=== PATIENT | male | born 1940 | race Caucasian/White ===

== ENCOUNTER → 2018-05-27 | Outpatient (CLI) | payer MEDICARE, OTHER ==
[~2018-05-27] MED LIST: ACET-1966 PO; ACET-2146 PO; ASPI-1471 PO; ATOR40TA24 PO; DOCU-416 PO; GUAI-244 PO; IBUP-56 PO; LEVO-3 PO; LEVO75TA73 PO; MAGN1TAB2 PO; MAGN400T36 PO; MELA3TAB31 PO; METO25TA23 PO; MOM PO; MULT-839 PO; NPH,100V12 SQ; RIVA20TA PO; TAMS0.4C70 PO
--- NOTE | 2018-05-27 10:51 | EKG ---
FACILITY: [facility] PATIENT NAME: LALIT GARCIA : [id number] MR: [id number] V: [id number] EXAM DATE: ORDERING PHYSICIAN: DERRICK RUTH TECHNOLOGIST: CROW Test Reason : BLOOD PRESSURE Blood Pressure : / mmHG Vent. Rate : 064 BPM Atrial Rate : 064 BPM P-R Int : 224 ms QRS Dur : 070 ms QT Int : 402 ms P-R-T Axes : 037 -25 017 degrees QTc Int : 414 ms Sinus rhythm with 1st degree AV block Inferior infarct , age undetermined Abnormal ECG No previous ECGs available Confirmed by DERRICK RUTH ([id number]) on 05/28/2018 4:52:48 PM Referred By: Confirmed By:DERRICK RUTH
[2018-05-27 10:58] LABS: PLATELET COUNT, AUTOMATED 183 K/uL (150-450)
[2018-05-27 11:15] LABS: LDL CHOLESTEROL 46 mg/dl
== END ==
LOC: CARD 10:05 → MERGE 10:05
PROVIDERS: ATTEND Internal Medicine
DX: I21.9 Acute myocardial infarction, unspecified (principal); I44.0 Atrioventricular block, first degree; R94.31 Abnormal electrocardiogram [ECG] [EKG]; N40.0 Benign prostatic hyperplasia without lower urinary tract symptoms; E11.9 Type 2 diabetes mellitus without complications; R60.9 Edema, unspecified; Z86.73 Personal history of transient ischemic attack (TIA), and cerebral infarction without residual deficits; E03.9 Hypothyroidism, unspecified
CPT/HCPCS: 36415; 82040; 82247; 82310; 82374; 82435; 82465; 82565; 82947; 83036; 83718; 83735; 83880; 84075; 84132; 84153; 84155; 84295; 84443; 84450; 84460; 84478; 84520; 84550; 85025

== ENCOUNTER 2018-06-04 10:53 | Emergency (ER) | payer MEDICARE, OTHER ==
[2018-06-04 10:58] VITALS: BP 149/77
--- NOTE | 2018-06-04 11:04 | ER Report ---
History and Physical Time Seen By MD: 11:03 Hx. of Stated Complaint: WAS EXERCISING AT [facility] WHEN rubber exercise band broke, hitting R eye. Scleral hemorrhage, decreased vision, decreased pupil reactivity. EOMI. HPI/ROS CHIEF COMPLAINT: Right eye pain HISTORY OF PRESENT ILLNESS: 77-year-old male patient presents to the emergency room with complaint of right eye pain. Patient states that he was doing exercises at [employer]. He states he was using a rubber band which broke following up and hitting him in the right eye. They did notice that he had a subconjunctival hemorrhage and were unable to visualize pupil reactivity. They became concerned and called the ER and were directed to have the patient, be evaluated here. Patient states he is not able see as well as in the right eye. He rates his pain a 6 out of 10. He denies any dizziness, nausea, vomiting. Allergies: Coded Allergies: No Known Drug Allergies (Unverified , 05/30/18) Home Meds Active Scripts Levothyroxine Sodium (LEVOTHYROXINE SODIUM) 100 Mcg Tablet, 100 MCG PO QDAY, #90 TAB 3 Refills Prov:DERRICK RUTH MD 06/03/18 Reported Medications Aspirin (ASPIRIN) 325 Mg Tablet, 325 MG PO DAILY, TAB 06/04/18 Rivaroxaban 20 Mg (XARELTO 20 MG) 20 Mg Tablet, 20 MG PO, TAB 05/27/18 Multivitamin (TAB-A-SHAMA) 1 Each Tablet, 1 EACH PO 05/27/18 Metoprolol Succinate (METOPROLOL SUCCINATE) 25 Mg Tab.er.24h, 1 TAB PO QDAY, TAB 05/27/18 Magnesium Oxide (MAGNESIUM OXIDE) 400 Mg Tablet, 400 MG PO QDAY 05/27/18 Nph, Human Insulin Isophane (NOVOLIN N) 100 Unit/1 Ml Vial, 100 UNIT SQ, VIAL 30units subq once daily @ 9am, inject 10u subq qHS 05/27/18 Docusate Sodium (COLACE) 100 Mg Capsule, 100 MG PO BID, CAPSULE 05/27/18 Atorvastatin Calcium (LIPITOR) 40 Mg Tablet, 2 TAB PO QDAY, TAB 05/27/18 Aspirin (ASPIR 81) 81 Mg Tablet.dr, 1 TAB PO QDAY, TAB 05/27/18 Melatonin (MELATONIN) 3 Mg Tablet, 6 MG PO HS PRN for SLEEP 10/2/18 Acetaminophen 500 Mg Tab (ACETAMINOPHEN EXTRA STRENGTH) 500 Mg Tablet, 500 MG PO Q4H PRN for PAIN, TAB 05/27/18 Magnesium Carbonate/Al Hydrox (ANTACID EXTRA STRENGTH CHW TAB) 1 Each Tab.chew, 1500 MG PO Q2H PRN for DIARRHEA, TAB.CHEW 05/27/18 Magnesium Hydroxide (MILK OF MAGNESIA) 400 Mg/5 Ml Oral.susp, 15-30 ML PO PRN for CONSTIPATION, BOTTLE 05/27/18 Guaifenesin (ROBAFEN) 100 Mg/5 Ml Liquid, 5 ML PO Q4-6H PRN for COUGH 05/27/18 Tamsulosin Hcl (TAMSULOSIN HCL) 0.4 Mg Cap.er.24h, 0.4 MG PO HS, CAP 05/27/18 Discontinued Reported Medications Levothyroxine Sodium (LEVOTHYROXINE SODIUM) 75 Mcg Tablet, 75 MCG PO QDAY, TAB 05/27/18 Ibuprofen (IBUPROFEN) 200 Mg Tablet, 1-2 TAB PO Q4-6H PRN for PAIN, TAB 05/27/18 Acetaminophen (TYLENOL) 325 Mg Tablet, 1-2 TAB PO Q4H PRN for PAIN, TAB 05/27/18 Discontinued Scripts Levothyroxine Sodium (LEVOTHYROXINE SODIUM) 100 Mcg Tablet, 100 MCG PO QDAY, #30 TAB 0 Refills Prov:DERRICK RUTH MD 05/29/18 Past Medical/Surgical History Patient has a past medical history of hypertension, hyperlipidemia, hypothyroidism, BPH. Patient has no pertinent surgical history. Reviewed Nurses Notes: Yes Smoking Status: Never Smoker Constitutional Vital Sign - Last 24 Hours 06/04/18 10:58 Temp 98.3 Pulse 63 Resp 20 B/P (MAP) 149/77 Pulse Ox 92 O2 Delivery Room Air Physical Exam General Appearance: The patient is alert, has no immediate need for airway p rotection and no current signs of toxicity. Eyes: Pupils equal and round. Pupils are reactive to light bilaterally. Extraocular movements are intact. Patient does have bleeding at the iris as well as subconjunctival hemorrhage. Respiratory: Chest is non tender, lungs are clear to auscultation. Cardiac: regular rate and rhythm Gastrointestinal: Abdomen is soft and non tender, no masses, bowel sounds normal. Musculoskeletal: Neck: Neck is supple and non tender. Extremities have full range of motion and are non tender. Skin: No rashes or lesions. Patient has some redness around the eye. DIFFERENTIAL DIAGNOSIS: After history and physical exam differential diagnosis was considered for hyphema, increased intraocular pressure, subconjunctival hemorrhage. Medical Decision Making ED Course/Re-evaluation ED Course Patient was admitted to an exam room, history and physical were obtained. The differential diagnoses were considered. On examination a shock to her movements are intact, pupils were equal round and reactive to light. He did have bleeding in the anterior chamber as evidenced by bladder around the iris, as well as a subconjunctival hemorrhage. Patient does admit that he is unable to see as well out of that right eye. A fluorescein exam was done which shows an abrasion over the pupil of the right eye. There is no Evaristo sign. The intraocular pressure was measured using our [place]. The pressure in the right eye was 40 the pressure in the left eye was 21. I did call and discuss the case with Dr. New, [address], he felt that with the patient being on his role toe and with the hyphema that he needed to be evaluated immediately. We will go ahead and discharge him from the emergency room and go directly to Dr. New's office. I discussed this with the patient who verbalized understanding and agreement with plan. Decision to Disposition Date: Jun 04, 2018 Decision to Disposition Time: 11:33 Depart Departure Latest Vital Signs Vital Signs Date Time Temp Pulse Resp B/P (MAP) Pulse Ox O2 Delivery O2 Flow Rate FiO2 06/04/18 10:58 98.3 63 20 149/77 92 Room Air Impression: Primary Impression: Hyphema of right eye Additional Impressions: Corneal abrasion, right Subconjunctival bleed Condition: Improved Disposition: HOME OR SELF-CARE Referrals: DERRICK RUTH MD (PCP) Patient Instructions: Hyphema (ED) Additional Instructions: Go directly to Dr. Luong's office. Limit activity by pain. Problem Qualifiers Additional Impressions: Corneal abrasion, right Encounter type: initial encounter Qualified Codes: S05.01XA - Injury of conjunctiva and corneal abrasion without foreign body, right eye, initial encounter Subconjunctival bleed Laterality: right Qualified Codes: H11.31 - Conjunctival hemorrhage, right eye CAROL BOOGIE Jun 04, 2018 11:03
[2018-06-04] MEDS ORDERED: ASPI-757 PO (11:14)
[2018-06-04] MEDS ORDERED: PROPARACAI/FLUORESCEIN 5 ML OP DROPS OU ONE (11:15)
[2018-06-05] MEDS ORDERED: METO25TA23 PO (15:27)
== END 2018-06-04 11:51 | disposition home or self-care (01) ==
LOC: ER 11:04
DX: S05.11XA Contusion of eyeball and orbital tissues, right eye, initial encounter (principal); S05.01XA Injury of conjunctiva and corneal abrasion without foreign body, right eye, initial encounter; H11.31 Conjunctival hemorrhage, right eye
CPT/HCPCS: 99283

== ENCOUNTER → 2018-07-29 | Outpatient (CLI) | payer MEDICARE, OTHER ==
[~2018-07-29] MED LIST changes: +ASPI-757 PO; +ATOR-1 PO; +LEV125 PO
[2018-07-29 08:51] LABS: PLATELET COUNT, AUTOMATED 119 K/uL (150-450)
== END ==
LOC: ZZSPRING 01:00
PROVIDERS: ATTEND Internal Medicine
DX: I49.5 Sick sinus syndrome (principal); E66.9 Obesity, unspecified; G47.33 Obstructive sleep apnea (adult) (pediatric); E03.9 Hypothyroidism, unspecified; I25.10 Atherosclerotic heart disease of native coronary artery without angina pectoris; E11.9 Type 2 diabetes mellitus without complications; I10 Essential (primary) hypertension; R71.8 Other abnormality of red blood cells
CPT/HCPCS: 82040; 82247; 82310; 82374; 82435; 82565; 82607; 82746; 82947; 83036; 83735; 84075; 84132; 84155; 84295; 84439; 84443; 84450; 84460; 84520; 85025

== ENCOUNTER → 2018-10-28 | Outpatient (CLI) | payer MEDICARE, OTHER ==
[~2018-10-28] MED LIST changes: +LEVO150T78 PO; +OSE75 PO
[2018-10-28 09:10] LABS: PLATELET COUNT, AUTOMATED 130 K/uL (150-450)
== END ==
LOC: ZZSPRING 02:53
PROVIDERS: ATTEND Internal Medicine
DX: I25.10 Atherosclerotic heart disease of native coronary artery without angina pectoris (principal); E11.9 Type 2 diabetes mellitus without complications; E03.9 Hypothyroidism, unspecified; E66.9 Obesity, unspecified
CPT/HCPCS: 36415; 82040; 82247; 82310; 82374; 82435; 82465; 82565; 82947; 83036; 83718; 84075; 84132; 84155; 84295; 84439; 84443; 84450; 84460; 84478; 84520; 85025

== ENCOUNTER → 2018-10-30 | Outpatient (CLI) | payer MEDICARE, OTHER | LOC: LAB 11:19 | PROVIDERS: ATTEND Internal Medicine | DX: E11.9 Type 2 diabetes mellitus without complications (principal) | CPT/HCPCS: 81001 ==

== ENCOUNTER → 2018-11-12 | Outpatient (CLI) | payer MEDICARE, OTHER ==
--- NOTE | 2018-11-12 15:47 | RADIOLOGY IMAGING REPORT ---
FACILITY: [facility] PATIENT NAME: Raimundo Dominguez : 1940 MR: [id number] V: [id number] EXAM DATE: ORDERING PHYSICIAN: DERRICK RUTH TECHNOLOGIST: Location: [facility] Patient: Raimundo Dominguez : 1940 Visit/Account:[id number] Date of Sevice: 11/12/2018 KIDNEYS EXAMINATION: Renal ultrasound. History: Urinary incontinence, diabetes COMPARISON STUDIES: FINDINGS: Kidneys: Right kidney- 9 x 4.8 x 4.6 cm Left kidney- 11.6 x 5.3 x 5 cm Uniform and symmetric blood flow in each kidney by Doppler ultrasound. Hydronephrosis: none There is a mildly lobular contour to both kidneys. Resistive index on the right is 0.44 and on the l eft 0.72 Bladder: Prevoid volume 199 mL. Post void residual 99 mL. Bilateral ureteral jets are present Abdominal aorta and IVC: Aorta and IVC are patent by Doppler ultrasound. IMPRESSION: Mildly lobular contour to both kidneys although discrete mass is not identified Post void bladder residual of 99 mL Report Dictated By: Carla Ya MD at 11/12/2018 3:41 PM Report E-Signed By: Carla Ya MD at 11/12/2018 3:43 PM WSN:[email or web address]
== END ==
LOC: US 00:52
PROVIDERS: ATTEND Internal Medicine
DX: R33.8 Other retention of urine (principal)
CPT/HCPCS: 76705

== ENCOUNTER → 2019-03-03 | Outpatient (CLI) | payer MEDICARE ==
[~2019-03-03] MED LIST changes: +CIPR-214 PO; +LANC-608 MC; +LANC1EAC MC; +MIRA50TA PO; +SYRI-1525 MC
== END ==
LOC: ZZSPRING 00:59
PROVIDERS: ATTEND Internal Medicine
DX: E03.9 Hypothyroidism, unspecified (principal); E11.9 Type 2 diabetes mellitus without complications; I25.10 Atherosclerotic heart disease of native coronary artery without angina pectoris; E83.42 Hypomagnesemia; Z86.73 Personal history of transient ischemic attack (TIA), and cerebral infarction without residual deficits
CPT/HCPCS: 36415; 82040; 82247; 82310; 82374; 82435; 82565; 82947; 83036; 83735; 84075; 84132; 84155; 84295; 84439; 84443; 84450; 84460; 84520